=== PATIENT | female | born 1965 | race Caucasian/White ===

== ENCOUNTER 2020-02-04 17:55 | Emergency (ER) | payer OTHER ==
[~2020-02-04] VITALS: Ht 162.6 cm; Wt 77.6 kg
[2020-02-04] MEDS ORDERED: AMOXICILLIN875 MG PO (19:38)
[2020-02-04] MEDS ORDERED: LISINOPRIL10 MG PO ×2 (19:38→21:04)
== END 2020-02-04 21:14 | disposition home or self-care (01) ==
LOC: ED 17:55
DX: S10.95XA Superficial foreign body of unspecified part of neck, initial encounter (principal); R51.9 Headache, unspecified; I10 Essential (primary) hypertension; W45.8XXA Other foreign body or object entering through skin, initial encounter; F17.200 Nicotine dependence, unspecified, uncomplicated
CPT/HCPCS: 70450; 70490; 99284-25